=== PATIENT | male | born 1955 | race Caucasian/White ===

== ENCOUNTER → 2017-03-21 | Outpatient (CLI) | payer OTHER ==
[2017-03-21 08:09] LABS: Basophils % (A) 1 %; CH 32.1; CHCM 34.7; Eosinophils # (A) 0.4 k/uL (0-0.7); Eosinophils % (A) 7 %; HCT 42.6 % (39.0-53.0); HDW 2.61; HGB 14.4 gm/dL (13.0-17.5); Luc # (Auto) 0.16; Luc % (Auto) 3; Lymphocytes # (A) 1.7 k/uL (1.0-4.8); Lymphocytes % (A) 30 %; MCH 31.3 pg (25.0-35.0); MCHC 33.7 g/dL (31.0-37.0); MCV 92.9 fL (80.0-100.0); Mean Platelet Volume 6.9; Monocytes # (A) 0.3 k/uL (0-1.0); Monocytes % (A) 6 %; Neutrophils % (A) 54 %; RBC 4.59 m/uL (4.30-5.90); RDW 12.9 % (11.5-15.5); WBC 5.6 k/uL (3.8-10.6); WBC (Perox) 5.46
[2017-03-21 11:05] LABS: ALT 55 U/L (21-72); AST 29 U/L (17-59); Alkaline Phosphatase 60 U/L (38-126); Anion Gap 10 mmol/L; Blood Urea Nitrogen 19 mg/dL (9-20); Calcium 9.8 mg/dL (8.4-10.2); Carbon Dioxide 26 mmol/L (22-30); Chloride 105 mmol/L (98-107); Cholesterol 158 mg/dL (<200); Glucose 108 mg/dL (74-99); HDL Cholesterol 59 mg/dL (40-60); Non-African American GFR(MDRD) >60 (>60 ml/min/1.73 sqM); Potassium 4.3 mmol/L (3.5-5.1); Sodium 141 mmol/L (137-145); Total Bilirubin 0.8 mg/dL (0.2-1.3); Triglycerides 101 mg/dL (<150)
== END | disposition home or self-care (01) ==
LOC: LABWHC1 07:39
PROVIDERS: ATTEND Internal Medicine
DX: Z00.00 Encounter for general adult medical examination without abnormal findings (principal); I10 Essential (primary) hypertension; E78.5 Hyperlipidemia, unspecified; Z12.5 Encounter for screening for malignant neoplasm of prostate
CPT/HCPCS: 80061; 80053; 85025; 36415; G0103

== ENCOUNTER → 2018-05-13 | Outpatient (CLI) | payer OTHER ==
[2018-05-13 09:41] LABS: Anion Gap 3 mmol/L; Blood Urea Nitrogen 18 mg/dL (9-20); Calcium 9.4 mg/dL (8.4-10.2); Carbon Dioxide 29 mmol/L (22-30); Chloride 108 mmol/L (98-107); Glucose 108 mg/dL (74-99); Magnesium 2.1 mg/dL (1.6-2.3); Potassium 5.1 mmol/L (3.5-5.1); Sodium 140 mmol/L (137-145)
== END | disposition home or self-care (01) ==
LOC: LABWHC1 08:42
PROVIDERS: ATTEND Internal Medicine Interventional Cardiology
DX: I49.3 Ventricular premature depolarization (principal)
CPT/HCPCS: 36415; 80048; 83735

== ENCOUNTER → 2018-06-19 | Outpatient (CLI) | payer OTHER ==
[2018-06-19 09:43] LABS: HCT 42.7 % (39.0-53.0); HGB 13.8 gm/dL (13.0-17.5); MCH 30.5 pg (25.0-35.0); MCHC 32.4 g/dL (31.0-37.0); MCV 94.4 fL (80.0-100.0); Mean Platelet Volume 6.9; Platelet Count 169 k/uL (150-450); RBC 4.52 m/uL (4.30-5.90); RDW 12.7 % (11.5-15.5); WBC 4.7 k/uL (3.8-10.6)
[2018-06-19 10:00] LABS: Anion Gap 6 mmol/L; Blood Urea Nitrogen 17 mg/dL (9-20); Carbon Dioxide 29 mmol/L (22-30); Chloride 105 mmol/L (98-107); Glucose 108 mg/dL (74-99); Potassium 4.8 mmol/L (3.5-5.1); Sodium 140 mmol/L (137-145)
== END | disposition home or self-care (01) ==
LOC: LABWHC1 08:19
PROVIDERS: ATTEND Internal Medicine Interventional Cardiology
DX: Z01.812 Encounter for preprocedural laboratory examination (principal); I10 Essential (primary) hypertension; R07.9 Chest pain, unspecified
CPT/HCPCS: 36415; 80051; 82565; 82947; 83735; 84520; 85027

== ENCOUNTER 2018-06-24 06:24 | Day surgery (SDC) | payer OTHER ==
[2018-06-21 10:40] VITALS: BMI 26.5
[~2018-06-24 06:24] MED LIST: ALPRAZolam 0.25 MG TAB PO PRN; ALPRAZolam 0.5 MG TAB PO PRN; ASPIRIN 325 MG TAB PO STA; ATORVASTATIN 80 MG TAB PO STA; NITROGLYCERIN SL TABS 0.4 MG TAB SUBLINGUAL PRN; SODIUM CHLORIDE 0.9% 1,000 ML in EMPTY BAG 1 BAG IV ONE
[2018-06-24] MEDS ORDERED: SODIUM CHLORIDE 0.9% 1,000 ML IV ONE (07:16)
[2018-06-24 07:17] VITALS: RESP 16
[2018-06-24] MEDS ORDERED: diphenhydrAMINE 50 MG/ML 1 ML VIAL ONE (07:25)
[2018-06-24] MEDS ORDERED: LIDOCAINE 1% INJ 10MG/ML (20 ML MDV) ONE (07:25)
[2018-06-24] MEDS ORDERED: MIDAZOLAM 2 MG/2 ML VIAL ONE (07:25)
[2018-06-24] MEDS ORDERED: diphenhydrAMINE 50 MG/ML 1 ML VIAL IVP ONE (07:39)
[2018-06-24] MEDS ORDERED: MIDAZOLAM 2 MG/2 ML VIAL IV ONE (07:39)
[2018-06-24] MEDS ORDERED: fentaNYL (PF) 50 MCG/ML 2 ML AMP ONE (07:42)
[2018-06-24] MEDS ORDERED: fentaNYL (PF) 50 MCG/ML 2 ML AMP IV ONE (07:44)
[2018-06-24] MEDS ORDERED: LIDOCAINE 1% INJ 10MG/ML (20 ML MDV) SQ ONE (07:44)
[2018-06-24] MEDS ORDERED: IOPAMIDOL-370 100ML BTL INJ ONE (07:59)
[2018-06-24] MEDS ORDERED: IOPAMIDOL-370 50ML BTL INJ ONE (07:59)
[2018-06-24] MEDS ORDERED: MORPHINE SULFATE 4 MG/ML SYRINGE ONE (08:00)
[2018-06-24] MEDS ORDERED: MORPHINE SULFATE 4 MG/ML SYRINGE IV ONE (08:01)
[2018-06-24] MEDS ORDERED: SODIUM CHLORIDE 0.9% 1,000 ML IV SCH (08:45)
[2018-06-24] MEDS ORDERED: SPIRONOLACTONE 25 MG TAB PO SCH (09:00)
--- NOTE | 2018-06-24 09:09 | CC ---
CARDIAC CATHETERIZATION REPORT DATE OF SERVICE: 06/24/2018 PROCEDURE: Left heart catheterization, coronary angiography and left ventriculography. PERFORMED BY: Dr. Isaak Brooke. Moderate conscious sedation time was 24 minutes. The patient was administered Benadryl, Versed and a milligram of morphine. His oxygen saturation, hemodynamics and EKG were monitored closely. CLINICAL INFORMATION: Mr. Rd Garibay is a 63-year-old gentleman with a history of ventricular ectopy, cardiomyopathy, previous history of alcoholism whose LV function was in the 45% range. After abstinence from alcohol, I performed cardiac cath 3 years ago, which revealed no obstructive CAD with improvement in LV function. However, he now presents with complaints of some palpitations, otherwise, he is a fairly active person. Ejection fraction is in the 50% range. Stress test revealed a fixed defect in the inferior wall. His ventricular ectopy burden was at least 20% to 25%. Given the increased PVC burden, persistent ejection fraction in the 50% range and because of equivocal stress test, raising the possibility of ischemia, I recommended coronary angiography and possible EP evaluation for ventricular ectopy, which could also be contributory factor for his cardiomyopathy. Patient has cut down the alcohol to about 6 beers on a weekend only. PROCEDURE NOTE: Under local anesthesia and strict aseptic precautions, a 6-Kinyarwanda introducer was placed in the right femoral artery. Standard Myrna catheters were used to perform coronary angiography and a pigtail catheter was used to perform LV gram. The catheters were taken out. Sheath was taken out and a Perclose device used to secure hemostasis and he was sent to the room in a stable condition. CARDIAC CATHETERIZATION FINDINGS: The left ventricular end-diastolic pressure was about 13 to14 mmHg without any gradient across the aortic valve. CORONARY ANGIOGRAPHY FINDINGS: RIGHT CORONARY ARTERY: Dominant vessel, no significant disease, gives off a very large acute marginal proximally and a conus branch. The RCA is dominant distally bifurcates into PDA and PLV, both of which have no significant disease. LEFT MAIN CORONARY ARTERY: This is a short patent disease-free vessel that bifurcates into LAD and circumflex. No significant disease is noted in the left main coronary artery. LEFT ANTERIOR DESCENDING CORONARY ARTERY: Good caliber vessel extends along the anterior wall gives off septal and diagonal branches runs all the way to the apex and curves over the apex to supply the inferoapical portion of left ventricle. No significant disease in the LAD system. Diagonal branch, which is of good caliber, is free of significant disease. LEFT POSTERIOR CIRCUMFLEX CORONARY ARTERY: Nondominant vessel, gives off a high obtuse marginal a groove branch and runs distally and supplies a fair amount of myocardium has minor irregularities. No significant disease in the nondominant circumflex. LEFT VENTRICULOGRAM: This was performed in 30-degree EARLY projection revealed left ventricle at the upper limits of normal with very mild global decrease in contractility, estimated ejection fraction in the range of 50% with mild mitral regurgitation. FINAL IMPRESSION: Patient has a right dominant system with normal filling pressures. Ejection fraction at the low end of normal of 50% with mild mitral regurgitation. No significant obstructive coronary artery disease in a right-dominant system. RECOMMENDATION: I am recommending that we will continue medical therapy. I will add Aldactone 12.5 mg daily to his regimen. I will request Dr. Jose Carlos Mead to see him regarding PVC burden and possible ablation. He will see him hopefully today and patient will be discharged later on today and he will follow up with me on Thursday and Dr. Thomas in about 2 weeks. MMODL / IJN: [id number] /
[2018-06-24 09:29] VITALS: TEMP 97.5
[2018-06-24 11:51] VITALS: BP 129/74; PULSE 43
--- NOTE | 2018-06-24 13:04 | P.CRDCN ---
History of Present Illness History of present illness: This is Dr. Mead dictating an electrophysiology consult on this patient The patient was interviewed and examined by me Patient of Dr. Brooke IMPRESSION / ASSESSMENT: Frequent PVCs, upright QRS is in the inferior leads upright in lead 1 negative in aVL right bundle branch block pattern High PVC burden of approximately 25% as an outpatient Cardio myopathy (ejection fraction 45-50%. In the past his LV function was severely reduced History of alcohol use in the past, still consumes 5-6 beers every weekend but has reduced considerably Normal coronary arteries by coronary angiography Good exercise capacity No syncope No family history of cardio myopathy PLAN: Detailed discussion with the patient and his . I would recommend the PVC ablation to help improve LV systolic function Complete abstinence from alcohol use The option of medical treatment with amiodarone or sotalol was discussed risks and benefits of EP study and radiofrequency ablation were discussed risks and benefits of cryotherapy were discussed The patient would like to completely abstain from alcohol for 3 months, reassess his LV function and PVC burden. If PVCs continue at a high frequency then he would definitely consider an EP study and ablation TSH level HPI History of very frequent PVCs brought in for coronary angiography by Dr. Brooke No syncope no heart failure symptoms ROS: No fever chills or rigors, no cough, phlegm or expectoration, no nausea, vomiting or diarrhea, no hematuria, dysuria, no musculoskeletal complaints, no strokes or seizures, no skin lesions. EXAMINATION Lying comfortably in bed No JVD no carotid bruits Pulse rate in the 50s Blood pressure 129/74 mmHg Home heart sounds, irregular on account of feces Breath sounds are clear no rhonchi no crackles No murmurs or gallops no rub Abdomen soft No lower extremities edema REVIEW OF LABS, ECG Twelve-lead ECG was reviewed and shows sinus rhythm with normal [place] narrow QRS width ventricular trigeminy with right bundle branch block PVCs upright in lead one to 3 aVF and negative in aVL Past Medical History Past Medical History: GERD/Reflux, Hyperlipidemia, Hypertension Additional Past Medical History / Comment(s): irregular heart rate History of Any Multi-Drug Resistant Organisms: None Reported Past Surgical History: Heart Catheterization Past Anesthesia/Blood Transfusion Reactions: No Reported Reaction Smoking Status: Unknown if ever smoked Past Alcohol Use History: Occasional Past Drug Use History: None Reported - Past Family History Mother Family Medical History: No Reported History Medications and Allergies Home Medications Medication Instructions Recorded Confirmed Type Aspirin 81 mg PO DAILY 12/27/14 06/24/18 History Atorvastatin Calcium [Lipitor] 20 mg PO DAILY 12/27/14 06/24/18 History Metoprolol Tartrate 25 mg PO QAM 12/27/14 06/24/18 History Multivitamins, Thera [Theragran] 1 each PO QAM 12/27/14 06/24/18 History Omeprazole [PriLOSEC] 20 mg PO DAILY 12/27/14 06/24/18 History Cholecalciferol [Vitamin D3] 1,000 unit PO DAILY 06/21/18 06/24/18 History Losartan Potassium [Cozaar] 100 mg PO DAILY 06/21/18 06/24/18 History Allergies Allergy/AdvReac Type Severity Reaction Status Date / Time No Known Allergies Allergy Verified 12/27/14 09:50 Physical Exam Vitals: Vital Signs Temp Pulse Pulse Pulse Resp BP BP 06/24/18 11:50 43 L 129/74 06/24/18 11:00 51 L 110/65 06/24/18 10:25 47 L 120/69 06/24/18 09:55 50 L 136/70 06/24/18 09:45 50 L 06/24/18 09:20 46 L 133/84 06/24/18 09:12 48 L 16 131/70 06/24/18 09:10 97.5 F L 45 L 16 125/74 06/24/18 08:57 47 L 16 130/79 06/24/18 08:42 51 L 16 116/75 06/24/18 08:00 16 06/24/18 07:45 16 06/24/18 07:15 97.7 F 47 L 16 139/80 149/83 Pulse Ox 06/24/18 11:50 96 06/24/18 11:00 95 06/24/18 10:25 93 L 06/24/18 09:55 96 06/24/18 09:45 06/24/18 09:20 96 06/24/18 09:12 97 06/24/18 09:10 94 L 06/24/18 08:57 97 06/24/18 08:42 98 06/24/18 08:00 97 06/24/18 07:45 06/24/18 07:15 98 Intake and Output 06/23/18 06/24/18 06/24/18 22:59 06:59 14:59 Intake Total 150 Output Total 450 Balance -300 Intake: IV 150 Output: Urine 450 Other: Voiding Method Toilet # Voids 1 Results Current Medications Generic Name Dose Route Start Last Admin Trade Name Freq PRN Reason Stop Dose Admin Alprazolam 0.25 mg 06/24/18 06:23 Xanax PO Q6HR PRN Mild Anxiety Alprazolam 0.5 mg 06/24/18 06:23 Xanax PO Q6HR PRN Moderate Anxiety Sodium Chloride 1,000 ml/ IV 1,000 mls @ 83.91 mls/hr 06/24/18 06:23 10:29 Solution IV 06/24/18 18:18 Not Given .[id number] ONE 1 ML/KG/HR Sodium Chloride 1,000 mls @ 100 mls/hr 06/24/18 08:45 06/24/18 10:31 Saline 0.9% IV 06/24/18 14:46 100 mls/hr .Q10H BRENDA Administration Nitroglycerin 0.4 mg 06/24/18 06:23 Nitrostat SUBLINGUAL Q5M PRN Chest Pain Spironolactone 12.5 mg 06/24/18 09:00 06/24/18 10:31 Aldactone PO 12.5 mg DAILY BRENDA Administration Intake and Output 06/23/18 06/24/18 06/24/18 22:59 06:59 14:59 Intake Total 150 Output Total 450 Balance -300 Intake: IV 150 Output: Urine 450 Other: Voiding Method Toilet # Voids 1
--- NOTE | 2018-06-24 13:30 | ECHOF ---
Referral Reason:arrhythmia MEASUREMENTS -------- HEIGHT: 177.8 cm WEIGHT: 83.9 kg BP: 139/80 RVIDd: 3.0 cm (< 3.3) IVSd: 1.0 cm (0.6 - 1.1) LVIDd: 4.7 cm (3.9 - 5.3) LVPWd: 0.9 cm (0.6 - 1.1) IVSs: 1.7 cm LVIDs: 3.3 cm LVPWs: 1.5 cm LA Diam: 3.5 cm (2.7 - 3.8) LAESV Index (A-L): 37.65 ml/m Ao Diam: 3.2 cm (2.0 - 3.7) AV Cusp: 2.1 cm (1.5 - 2.6) MV E Josr: 0.68 m/s MV DecT: 145 ms MV A Josr: 0.64 m/s MV E/A Ratio: 1.06 RAP: 5.00 mmHg RVSP: 29.98 mmHg FINDINGS -------- Resting bradycardia (HR<60bpm). This was a technically adequate study. The left ventricular size is normal. There is borderline concentric left ventricular hypertrophy. Overall left ventricular systolic function is mildly impaired with, an EF between 45 - 50 %. Basal inferoseptal LV wall motion is hypokinetic. The right ventricle is normal in size and function. LA is moderately dilated 34-39 ml/m2 The right atrium is normal in size. There is mild aortic regurgitation. The mitral valve leaflets are mildly thickened. Mild mitral annular calcification present. Mild m itral regurgitation is present. Mild tricuspid regurgitation present. Right ventricular systolic pressure is normal at < 35 mmHg. Moderate pulmonic regurgitation. The aortic root size is normal. IVC Not well visulized. There is no pericardial effusion. CONCLUSIONS -------- 1. Resting bradycardia (HR<60bpm). 2. This was a technically adequate study. 3. The left ventricular size is normal. 4. There is borderline concentric left ventricular hypertrophy. 5. Overall left ventricular systolic function is mildly impaired with, an EF between 45 - 50 %. 6. Basal inferoseptal LV wall motion is hypokinetic. 7. The right ventricle is normal in size and function. 8. LA is moderately dilated 34-39 ml/m2 9. The right atrium is normal in size. 10. There is mild aortic regurgitation. 11. The mitral valve leaflets are mildly thickened. 12. Mild mitral annular calcification present. 13. Mild mitral regurgitation is present. 14. Mild tricuspid regurgitation present. 15. Right ventricular systolic pressure is normal at < 35 mmHg. 16. Moderate pulmonic regurgitation. 17. The aortic root size is normal. 18. IVC Not well visulized. 19. There is no pericardial effusion. COGNOS: Maria Del Carmen Ogden RDCS
== END 2018-06-24 16:17 | disposition home or self-care (01) ==
LOC: CATHCVL 06:24 → 3OBS 08:05 → CATHCVL 16:17
PROVIDERS: ATTEND Internal Medicine Interventional Cardiology
DX: I49.3 Ventricular premature depolarization (principal); I45.10 Unspecified right bundle-branch block; I08.3 Combined rheumatic disorders of mitral, aortic and tricuspid valves; I42.9 Cardiomyopathy, unspecified; E78.00 Pure hypercholesterolemia, unspecified; R07.89 Other chest pain; I10 Essential (primary) hypertension; K21.9 Gastro-esophageal reflux disease without esophagitis; F10.21 Alcohol dependence, in remission; Z82.49 Family history of ischemic heart disease and other diseases of the circulatory system; Z79.82 Long term (current) use of aspirin; Z79.899 Other long term (current) drug therapy; Z88.0 Allergy status to penicillin
CPT/HCPCS: 93306; 93458; C1894; C1769 ×2; C1760; J2250; J2270; J1200; J2001; J3010; Q9967 ×2

== ENCOUNTER → 2018-07-16 | Outpatient (CLI) | payer OTHER ==
[2018-07-16 09:19] LABS: T4, Free (Free Thyroxine) 0.7 ng/dL (0.78-2.19)
== END ==
LOC: LABWHC1 07:03
PROVIDERS: ATTEND Internal Medicine Interventional Cardiology
DX: E07.9 Disorder of thyroid, unspecified (principal)
CPT/HCPCS: 36415; 84439; 84443; 84481